=== PATIENT | female | born 1995 | race Caucasian/White ===

== ENCOUNTER 2017-04-15 10:30 | Observation (INO) | payer MEDICAID ==
[2017-04-15] MEDS ORDERED: D5W/LACTATED RINGERS 1,000 ML IV SCH (10:52)
[2017-04-15] MEDS ORDERED: OMEG306C OR (11:53)
[2017-04-15] MEDS ORDERED: CALCCHW PO (11:53)
[2017-04-15] MEDS ORDERED: PREN-96 PO (11:53)
== END 2017-04-15 13:50 | disposition home or self-care (01) | DRG 566 ==
LOC: LDRP 10:30
PROVIDERS: ADMIT Obstetrics & Gynecology; ATTEND Obstetrics & Gynecology
DX: O21.2 Late vomiting of pregnancy (principal); E86.0 Dehydration; O26.893 Other specified pregnancy related conditions, third trimester; K52.9 Noninfective gastroenteritis and colitis, unspecified; O99.613 Diseases of the digestive system complicating pregnancy, third trimester; Z3A.37 37 weeks gestation of pregnancy; R19.7 Diarrhea, unspecified
CPT/HCPCS: 59025; 81002; G0378; 96365; 96366

== ENCOUNTER 2017-05-01 22:26 | Observation (INO) | payer MEDICAID ==
[~2017-05-01 22:26] MED LIST: CALCCHW PO; OMEG306C OR; PREN-96 PO
== END 2017-05-01 23:34 | disposition home or self-care (01) | DRG 566 ==
LOC: LDRP 22:26
PROVIDERS: ADMIT Obstetrics & Gynecology; ATTEND Obstetrics & Gynecology
DX: O62.9 Abnormality of forces of labor, unspecified (principal); Z3A.39 39 weeks gestation of pregnancy
CPT/HCPCS: 59025; 81002; G0378

== ENCOUNTER 2017-05-02 06:41 | Inpatient (IN) | payer MEDICAID ==
[~2017-05-02] VITALS: Ht 167.6 cm; Wt 73.9 kg
[2017-05-02] MEDS ORDERED: LACT. RINGERS/OXYTOCIN 20UNITS 1,000 ML IV SCH (07:16)
[2017-05-02] MEDS ORDERED: LACTATED RINGER'S 1,000 ML IV SCH (07:16)
[2017-05-02] MEDS ORDERED: DERMOPLAST 60ML BOTTLE TOP PRN (07:30)
[2017-05-02] MEDS ORDERED: NALBUPHINE HCL 10 MG/1ml INJECTION IV PRN (07:30)
[2017-05-02] MEDS ORDERED: LIDOCAINE 2%HCL (LOCAL ANESTH.) INJ 20ML MDV IJ ONE (07:30)
[2017-05-02] MEDS ORDERED: METHYLERGONOVINE MALEATE 0.2 MG/ML AMP IM PRN (07:30)
[2017-05-02] MEDS ORDERED: PHISODERM TOP SOLN 240ML BTL TOP PRN (07:30)
[2017-05-02] MEDS ORDERED: WITCH HAZEL-GLYCERIN PAD TOP PRN (07:30)
[2017-05-02] MEDS ORDERED: CARBOPROST TROMETHAMINE 250 MCG/1ML VIAL IM PRN (07:30)
[2017-05-02] MEDS ORDERED: PENICILLIN G POT 5MIL/D5 50ML 50 ML IV ONE (07:30)
[2017-05-02 07:57] LABS: Basophils # (auto) 0.2 uL; Eosinophils # (auto) 0 uL; Hematocrit 39.9 % (36.0-46.0); Hemoglobin 13.3 g/dL (12.2-16.2); Lymphocytes # (auto) 0.8 uL; Lymphocytes % (auto) 3.9 % (10.0-50.0); Mean Corpuscular Hgb Conc. 33.4 g/dL (32.0-36.0); Mean Corpuscular Volume 86.6 fL (80.0-100.0); Monocytes # (auto) 0.4 uL; Monocytes % (auto) 2.1 % (0.0-12.0); Neutrophils # (auto) 19.1 uL; Platelet Count (auto) 268 10^3/uL (140-450); White Blood Cell 20.5 10^3/uL (4.4-10.8)
[2017-05-02 08:07] LABS: INR 0.9 (0.9-1.15); Prothrombin Time 9.8 sec (9.37-12.3)
[2017-05-02 08:24] LABS: Calcium 8.6 mg/dL (8.5-10.1); Potassium 3.5 mmol/L (3.5-5.1)
[2017-05-02 08:26] LABS: Bilirubin, Total 0.8 mg/dL (0.2-1.0)
[2017-05-02 11:22] LABS: Urine Bacteria NONE SEEN /hpf (None Seen); Urine Blood TRACE /uL (Negative); Urine Mucus FEW (None Seen); Urine Specific Gravity 1.034 (1.001-1.035); Urine WBC 2 /hpf (0 - 5)
[2017-05-02] MEDS ORDERED: PENICILLIN G POTASSIUM 2,500,000 UNITS in D5W 5% 50 ML IV SCH (11:30)
[2017-05-02] MEDS ORDERED: LIDOCAINE 2%HCL (LOCAL ANESTH.) INJ 20ML MDV ONE (12:50)
[2017-05-02] MEDS ORDERED: ACETAMINOPHEN 325 MG TAB PO PRN (13:30)
[2017-05-02] MEDS: DOCUSATE CALCIUM 240 MG CAP PO SCH (14:30)
[2017-05-02 19:00] VITALS: BP 103/58
[2017-05-02] MEDS: IBUPROFEN 600 MG TAB PO PRN (19:04)
[2017-05-02 23:00] VITALS: BP 109/59
[2017-05-03] MEDS: IBUPROFEN 600 MG TAB PO PRN ×2 (03:52→15:15)
[2017-05-03 04:00] VITALS: BP 110/55
[2017-05-03 06:40] VITALS: BP 113/58
[2017-05-03] MEDS: DOCUSATE CALCIUM 240 MG CAP PO SCH (10:02)
[2017-05-03 10:40] VITALS: BP 115/63
[2017-05-03 15:05] VITALS: BP 105/69
[2017-05-03 19:42] VITALS: BP 111/62
[2017-05-04 00:25] VITALS: BP 103/60
[2017-05-04 04:30] VITALS: BP 124/75
[2017-05-04 07:07] VITALS: BP 123/69
[2017-05-04 08:30] VITALS: BP 130/70
[2017-05-04 13:08] VITALS: BP 123/80
== END 2017-05-04 11:45 | disposition home or self-care (01) | DRG 560 ==
LOC: OBSVTOIN 06:41 → LDRP 06:41
PROVIDERS: ADMIT Obstetrics & Gynecology; ATTEND Obstetrics & Gynecology
PROC: 10D07Z6 Extraction of Products of Conception, Vacuum, Via Natural or Artificial Opening (ICD-10-PCS; principal; 2017-05-02)
PROC: 0W8NXZZ Division of Female Perineum, External Approach (ICD-10-PCS; 2017-05-02)
PROC: 0KQM0ZZ Repair Perineum Muscle, Open Approach (ICD-10-PCS; 2017-05-02)
DX: O76 Abnormality in fetal heart rate and rhythm complicating labor and delivery (principal); O99.824 Streptococcus B carrier state complicating childbirth; O70.1 Second degree perineal laceration during delivery; Z37.0 Single live birth; Z3A.39 39 weeks gestation of pregnancy
CPT/HCPCS: 36415; 59025; 59409; 80053; 81001; 82962; 85025; 85610; 85730; 86850; 86900; 86901; 96365; 96366; J2540; J2590; J7060